=== PATIENT | female | born 1995 | race Caucasian/White ===

== ENCOUNTER → 2016-06-28 | Outpatient (REF) | payer OTHER | LOC: M SFHCLERA 11:25 | PROVIDERS: ATTEND Nurse Practitioner Family | DX: J06.9 Acute upper respiratory infection, unspecified (principal) ==

== ENCOUNTER → 2017-04-05 | Outpatient (REF) | payer BC, OTHER | LOC: M WUC 10:55 | DX: J02.9 Acute pharyngitis, unspecified (principal) | CPT/HCPCS: 87070 ==

== ENCOUNTER → 2017-08-20 | Outpatient (REF) | payer OTHER | LOC: M LAB REF 21:28 | DX: R30.0 Dysuria (principal) | CPT/HCPCS: 87086 ==